=== PATIENT | male | born 2005 | race African-American/Black ===

== ENCOUNTER 2025-01-10 18:05 | Emergency (ER) | payer MEDICAID, OTHER ==
[~2025-01-10] VITALS: Ht 182.9 cm; Wt 110.0 kg
[2025-01-10 18:17] VITALS: O2SAT 100
[2025-01-10] MEDS ORDERED: IBUP-1455 MT (19:17)
[2025-01-10] MEDS ORDERED: METH-653 MT (19:17)
[2025-01-10 19:55] VITALS: BP 158/93; PULSE 89; RESP 19; TEMP 37; O2SAT 99
== END 2025-01-10 19:56 | disposition home or self-care (01) ==
LOC: ER 18:05
DX: S33.5XXA Sprain of ligaments of lumbar spine, initial encounter (principal); V43.52XA Car driver injured in collision with other type car in traffic accident, initial encounter; Y93.89 Activity, other specified; Y92.410 Unspecified street and highway as the place of occurrence of the external cause; Y99.8 Other external cause status
CPT/HCPCS: 99283